=== PATIENT | male | born 1985 | race Caucasian/White ===

== ENCOUNTER 2021-01-24 19:16 | Emergency (ER) | payer OTHER ==
[~2021-01-24] VITALS: Ht 185.4 cm; Wt 90.7 kg
[2021-01-24 19:17] VITALS: BP 158/99
--- NOTE | 2021-01-24 20:08 | NUR ---
radiology with pt for xr
[2021-01-24] MEDS ORDERED: TRAM50TA2 PO (20:52)
[2021-01-24] MEDS ORDERED: IBUP-1955 PO (20:52)
== END 2021-01-24 21:14 | disposition home or self-care (01) ==
LOC: ER 19:20
DX: S82.832A Other fracture of upper and lower end of left fibula, initial encounter for closed fracture (principal); X50.1XXA Overexertion from prolonged static or awkward postures, initial encounter; Y93.01 Activity, walking, marching and hiking; Y92.89 Other specified places as the place of occurrence of the external cause; Y99.8 Other external cause status
CPT/HCPCS: 73610-TC